=== PATIENT | female | born 1975 | race African-American/Black ===

== ENCOUNTER 2017-07-27 09:37 | Emergency (ER) | payer BC ==
[2017-07-27 09:59] VITALS: BP 114/72
--- NOTE | 2017-07-27 10:38 | UC ---
Respiratory Complaint HPI - HPI Summary HPI Summary: 42 y/o female presents to the urgent care c/o SOB, congestion, sore throat that started last Tuesday07/22/17. Pt states symptoms started w/ body aches, chills, nasal congestion, and low grade fever. Now cough is productive w/ yellowish phlegm and she felt SOB and WILD this morning . Pt denies wheezing, chest pain, dizziness, abdominal pain, N/V/D. She has taken OTC meds w/o any improvement of symptoms. LMP:07/04/2017 and declines test. - History of Current Complaint Chief Complaint: UCGeneralIllness Stated Complaint: CHEST CONGESTION Time Seen by Provider: 07/27/17 10:37 Hx Obtained From: Patient Hx Last Menstrual Period: 07/04/17 ?: No Onset/Duration: Gradual Onset, Lasting Weeks - 1 week, Still Present, Worse Since - today Timing: Intermittent Episodes Severity Initially: Mild Severity Currently: Moderate Pain Intensity: 6 - WILD Pain Scale Used: 0-10 Numeric Character: Cough: Productive, Sputum Description: - yellowish Aggravating Factors: Recumbent Position Alleviating Factors: OTC Meds Associated Signs And Symptoms: Positive: Dyspnea, Fever - low grade at home, Chills, Calf Swelling, URI, Nasal Congestion. Negative: Wheezing - Risk Factors Pulmonary Embolism Risk Factors: Negative Cardiac Risk Factors: Negative Pseudomonas Risk Factors: Negative Tuberculosis Risk Factors: Negative - Allergies/Home Medications Allergies/Adverse Reactions: Allergies Allergy/AdvReac Type Severity Reaction Status Date / Time Penicillins Allergy Unknown Verified 07/27/17 09:52 Reaction Details ibuprofen AdvReac Abdominal Verified 07/27/17 09:52 Pain Home Medications: Home Medications Citalopram TAB* [Celexa TAB*] 40 mg PO DAILY 07/27/17 [History Confirmed ] traZODone TAB* [Desyrel TAB*] 50 mg PO BEDTIME 07/27/17 [History Confirmed 07/27] PMH/Surg Hx/FS Hx/Imm Hx Previously Healthy: Yes - Pt denies PMHX - Surgical History Surgical History: Yes Surgery Procedure, Year, and Place: tubal ligation - Family History Known Family History: Positive: Hypertension - Social History Occupation: Employed Full-time Lives: With Family Alcohol Use: None Substance Use Type: None Smoking Status (MU): Never Smoked Tobacco Review of Systems Constitutional: Fever - low grade at home, Chills, Other - body aches Skin: Negative Eyes: Negative ENT: Nasal Discharge, Sinus Congestion Respiratory: Shortness Of Breath, Cough Cardiovascular: Negative Gastrointestinal: Negative Genitourinary: Negative Motor: Negative Neurovascular: Negative Musculoskeletal: Negative Neurological: Headache Psychological: Negative Is Patient Immunocompromised?: No All Other Systems Reviewed And Are Negative: Yes Physical Exam - Summary Physical Exam Summary: Vital Signs Reviewed: Yes General: well developed, well nourished female sitting in the examining table w/ o any apparent distress Eyes: Positive: Conjunctiva Clear - PERRLA, EOMI, fundi grossly normal ENT: Positive: Normal ENT inspection, Hearing grossly normal, Pharynx normal, Nasal congestion - edematous and erythematous nasal mucosa, Nasal drainage - yellowish drainage, TMs normal. Negative: Tonsillar swelling, Tonsillar exudate Neck: Positive: Supple, Nontender, No Lymphadenopathy Respiratory: no orthopnea or dyspnea. Able to speak in full sentences, no retractions or accessory muscle use, no tripod position, stridor, or head bobbing. Positive breath sounds. B/L posterior upper lungs w/ scattered rhonchi , no wheezes, no crackles or rales. Cardiovascular: Positive: RRR, No Murmur, Pulses Normal, Brisk Capillary Refill Abdomen Description: Positive: Nontender, No Organomegaly, Soft. Negative: CVA Tenderness (R), CVA Tenderness (L) Bowel Sounds: Positive: Present Musculoskeletal Exam: Normal Musculoskeletal: Positive: Strength Intact, ROM Intact, No Edema Neurological Exam: Normal Psychological Exam: Normal Skin Exam: Normal Triage Information Reviewed: Yes Vital Signs: Initial Vital Signs Temp 98.3 F 07/27/17 09:53 Pulse 89 07/27/17 09:53 Resp 16 07/27/17 09:53 BP 114/72 07/27/17 09:53 Pulse Ox 100 07/27/17 09:53 UC Diagnostic Evaluation - Laboratory O2 Sat by Pulse Oximetry: 100 Respiratory Course/Dx - Course Course Of Treatment: 42 y/o female presents to the urgent care c/o SOB, congestion, sore throat that started last Tuesday07/22/17. Pt states symptoms started w/ body aches, chills, nasal congestion, and low grade fever. Now cough is productive w/ yellowish phlegm and she felt SOB and WILD this morning . Pt denies wheezing, chest pain, dizziness, abdominal pain, N/V/D. She has taken OTC meds w/o any improvement of symptoms. LMP:07/04/2017 and declines test.Hx obtained. Pt w/ posterior upper lungs w/ scattered rhonchi on examination. Influenxa A&B: negative. O2Sat:100%.Chest X-ray ordered: Impression : No acute cardiopulmonary disease observed. Albuterol Treatment: 1 Tx given to patient. Patient tolerated well treatment and felt better. PT PCN allegic. Pt taking Xanax for her depression. Patient prescribed Doxycycline PO , Albuterol inhaler and Tessalon tabs to alleviate cough. The patient was recommended to increase fluid intake. Take medications as directed below. Patient recommended to return to the clinic or go to the nearest ER if symptoms do not improve or worsen. Patient understood and agree w/ plan of care. Pt left the clinicn hemodynamically stable. - Differential Dx/Diagnosis Differential Diagnosis/HQI/PQRI: Asthma, Bronchitis, Influenza, Laryngitis, Lower Resp Infection, Sinusitis Provider Diagnoses: 1- Acute bronchitis. 2-Cough Discharge - Sign-Out/Discharge Documenting (check all that apply): Discharge - Discharge Plan Condition: Stable Disposition: HOME Prescriptions: Albuterol HFA INHALER* [Ventolin HFA Inhaler*] 1 - 2 puff INH Q6H PRN #1 mdi PRN Reason: Cough Benzonatate CAP* [Tessalon 100 MG CAP*] 100 mg PO TID PRN #21 cap PRN Reason: Cough DOXYcycline CAP(*) [DOXYcycline 100MG CAP(*)] 100 mg PO DAILY #20 cap Patient Education Materials: Acute Bronchitis (ED) Forms: *Work Release Referrals: Jesse Kyle MD [Primary Care Provider] - 3 Days Additional Instructions: 1-Please take full course of antibiotic to avoid resistance. 2-Take Tessalon PO tabs as directed and use the albuterol inhaler to alleviate cough. Increase fluid intake, rest and eat well. 3- If symptoms do not improve or worsen or your develop SOB with fever and severe wheezing please go immediately to the ER further evaluation and treatment. 4- F/u with your PCP in 2-3 days for further management. - Billing Disposition and Condition Condition: STABLE Disposition: HOME
[2017-07-27] MEDS ORDERED: Albuterol 2.5 MG/3 ML NEB.SOL* (0.083%) INH ONE (10:50)
--- NOTE | 2017-07-27 11:27 | RAD ---
Indication: Cough, fever. 2 views of the chest including dual energy PA views demonstrates no mediastinal shift. Heart is of normal size and configuration. Lung guerra are clear. When compared to previous exam of April 30, 2015 no significant change is noted. IMPRESSION: No active cardiopulmonary disease is noted.
== END 2017-07-27 11:52 | disposition home or self-care (01) ==
LOC: UCEAST 09:37
DX: R06.02 Shortness of breath (principal); R09.89 Other specified symptoms and signs involving the circulatory and respiratory systems; J02.9 Acute pharyngitis, unspecified; R05 Cough; R50.9 Fever, unspecified; Z88.6 Allergy status to analgesic agent; Z88.0 Allergy status to penicillin
CPT/HCPCS: 71046; 87502; 99212; G0463

== ENCOUNTER 2018-05-30 13:42 | Emergency (ER) | payer BC ==
[2018-05-30 14:02] VITALS: BP 112/73
--- NOTE | 2018-05-30 14:36 | UC ---
Complaint Female HPI - HPI Summary HPI Summary: Low back pain and dysuria over the past 2 days. Had a low grade fever yesterday. Pt states she thinks she has a prolapsed uterus which she has had for the past 2 years. Pt states she saw an AREA COORDINATOR 2 years ago and they were not able to determine a prolapsed uterus. Pt complains of a more severe menses 2 weeks ago with a lot of cramping which is abnormal for her. She has some abnormal vaginal discharge but denies any smell or color to it. She has had a tubal ligation in the past. - History Of Current Complaint Chief Complaint: UCGU Stated Complaint: ABD/BACK PAIN URINARY ISSUE Time Seen by Provider: 05/30/18 14:28 Hx Obtained From: Patient Hx Last Menstrual Period: 2 weeks ago ?: No Onset/Duration: Gradual Onset - Started 2 days ago. Timing: Constant Severity Initially: Mild Severity Currently: Mild Pain Intensity: 7 Character: Dull, Burning - The feeling of the uterine prolapse is worse when patient is urinating. Aggravating Factor(s): Urination Alleviating Factor(s): Nothing Associated Signs And Symptoms: Positive: Fever - Low grade fever yesterday, Vaginal Bleeding/Discharge - Mild abnormal vaginal discharge with no odor or abnormal color to it. Related Hx: - 4 para 4 - Risk Factors Ectopic Risk Factor: Tubal Ligation Ovarian Torsion Risk Factor: Tubal Ligation - Allergies/Home Medications Allergies/Adverse Reactions: Allergies Allergy/AdvReac Type Severity Reaction Status Date / Time Penicillins Allergy Unknown Verified 05/30/18 14:02 Reaction Details ibuprofen AdvReac Abdominal Verified 05/30/18 14:02 Pain PMH/Surg Hx/FS Hx/Imm Hx - Additional Past Medical History Additional PMH: Sexually active with one partner in monogamous relationship. Previously Healthy: Yes - Surgical History Surgical History: Yes Surgery Procedure, Year, and Place: tubal ligation - Family History Known Family History: Positive: Hypertension - Social History Lives: With Family Alcohol Use: None Substance Use Type: None Smoking Status (MU): Never Smoked Tobacco Review of Systems All Other Systems Reviewed And Are Negative: Yes Constitutional: Positive: Fever - Low grade fever yesterday but resolved today. Skin: Positive: Negative Eyes: Positive: Negative ENT: Positive: Negative Respiratory: Positive: Negative Cardiovascular: Positive: Negative Gastrointestinal: Positive: Abdominal Pain - Lower abdominal Genitourinary: Positive: Dysuria Motor: Positive: Negative Neurovascular: Positive: Negative Musculoskeletal: Positive: Negative Neurological: Positive: Negative Is Patient Immunocompromised?: No Physical Exam Appearance: Well-Appearing Vital Signs: Initial Vital Signs Temp 97.6 F 05/30/18 13:55 Pulse 82 05/30/18 13:55 Resp 18 05/30/18 13:55 BP 112/73 05/30/18 13:55 Pulse Ox 100 05/30/18 13:55 Vital Signs Reviewed: Yes Eyes: Positive: Conjunctiva Clear ENT Exam: Normal Neck exam: Normal Respiratory Exam: Normal Cardiovascular Exam: Normal Abdomen Description: Positive: No Organomegaly, Soft, Other: - Mild tenderness on palpation upper abdomen and lower abdomen. No point tenderness. Bowel Sounds: Positive: Present Pelvic Exam: Positive: External Exam Normal - No uterine prolapse noted., No Masses, Discharge - Minimal white milky discharge with a slight tinge of yellow to it. Adnexa and cervix minimally tender on firm palpation. Negative chandelier. No uterine prolapse noted. Musculoskeletal Exam: Normal Neurological: Positive: Alert, Muscle Tone Normal Psychological: Positive: Normal Response To Family, Age Appropriate Behavior Skin Exam: Normal Complaint Female Dx - Course Course Of Treatment: Discussed possibility of BV, STD's, yeast infection with patient. She would rather wait for culture results before doing any treatment ( which I offered to her). I was unable to determine a uterine prolapse and advised her to keep her appt in June with her AREA COORDINATOR physician. She is to go to the ER if she has worsening symptoms, fever, increased pain. She is agreeable to this plan of action. - Differential Dx/Diagnosis Provider Diagnosis: Abdominal pain Discharge - Sign-Out/Discharge Documenting (check all that apply): Patient Departure All imaging exams completed and their final reports reviewed: No Studies - Discharge Plan Condition: Good Disposition: HOME Patient Education Materials: Acute Abdominal Pain (DC) Referrals: Jesse Kyle MD [Primary Care Provider] - Additional Instructions: If pain worsens, go to the ER for further evaluation. Definite follow up, as scheduled, with your AREA COORDINATOR physician. - Billing Disposition and Condition Condition: GOOD Disposition: Home
[2018-05-31 13:07] LABS: Neisseria gonorrhoeae (GC) RNA Negative (Negative)
[2018-05-31 13:12] LABS: Trichomonas vaginalis Result Negative (Negative)
== END 2018-05-30 15:35 | disposition home or self-care (01) ==
LOC: UCEAST 13:42
DX: R10.10 Upper abdominal pain, unspecified (principal); R10.30 Lower abdominal pain, unspecified; R50.9 Fever, unspecified; N89.8 Other specified noninflammatory disorders of vagina; Z88.6 Allergy status to analgesic agent; Z88.0 Allergy status to penicillin
CPT/HCPCS: 81003; 84702; 87480; 87491; 87510; 87591; 87661; 99211; G0463

== ENCOUNTER 2019-02-21 14:50 | Emergency (ER) | payer BC, OTHER ==
--- OUTSIDE RECORDS SUMMARY | 2019-02-21 15:06 | XMS REPORT | Continuity of Care Document ---
:1975 External Reference #:[id number] Author Name Hilario Noel M.D. Address [address] [facility] [place] [address] Care Team Providers Name Role Phone Jesse Kyle M.D. Care Team Information Head [employer] Unavailable Problems Active Problems Provider Date Allergic rhinitis due to pollen Hilario Noel M.D. Onset: 06/12/2018 Social History Type Date Description Comments Sex Unknown ETOH Use Rarely consumes alcohol Tobacco Use Start: Unknown Patient has never smoked Recreational Drug Use Denies Drug Use Allergies, Adverse Reactions, Alerts Active Allergies Reaction Severity Comments Date Penicillin unsure 06/12/2018 Medications Active Medications SIG Qnty Indications Ordering Provider Date Qnasl two squirts in 8.700gm J30.1 Hilario Noel M.D. 06/12/2018 80mcg/Act Aerosol each nostril once daily Citalopram Unknown Hydrobromide 40mg Tablets Medications Administered in Office Medication SIG Qnty Indications Ordering Provider Date Injection Allergy Injection 01/01/2019 Injection Injection Allergy Injection 12/25/2018 Injection Injection Allergy Injection 12/18/2018 Injection Injection Allergy Injection 12/13/2018 Injection Injection Allergy Injection 12/04/2018 Injection Injection Allergy Injection 11/29/2018 Injection Injection Allergy Injection 11/20/2018 Injection Injection Allergy Injection 11/13/2018 Injection Injection Allergy Injection 11/06/2018 Injection Injection Allergy Injection 10/30/2018 Injection Injection Allergy Injection 10/25/2018 Injection Injection Allergy Injection 10/16/2018 Injection Injection Allergy Injection 10/09/2018 Injection Injection Allergy Injection 10/02/2018 Injection Injection Allergy Injection 09/27/2018 Injection Injection Allergy Injection 09/18/2018 Injection Injection Allergy Injection 09/11/2018 Injection Injection Allergy Injection 09/06/2018 Injection Injection Allergy Injection 08/28/2018 Injection Injection Allergy Injection 08/21/2018 Injection Injection Allergy Injection 08/14/2018 Injection Injection Allergy Injection 08/07/2018 Injection Injection Allergy Injection 07/31/2018 Injection Injection Allergy Injection 07/17/2018 Injection Injection Allergy Injection 07/10/2018 Injection Injection Allergy Injection 07/03/2018 Injection Injection Allergy Injection 06/26/2018 Injection Immunizations CPT Code Status Date Vaccine Lot # [id number] Given Unknown Influenza Vaccine 26144 Given Unknown Influenza Vaccine Vital Signs Date Vital Result Comment 01/05/2019 3:15pm Height 64 inches 5'4" Weight 195.00 lb Weight 88.452 kg Respiratory Rate 16 /min Heart Rate 84 /min O2 % BldC Oximetry 99 % BP Systolic 104 mmHg BP Diastolic 65 mmHg BMI (Body Mass Index) 33.5 kg/m2 12/18/2018 5:06pm Height 64 inches 5'4" Respiratory Rate 16 /min Heart Rate 85 /min O2 % BldC Oximetry 99 % room air BP Systolic 102 mmHg BP Diastolic 68 mmHg Results Description No Information Available Procedures Date Code Description Status 01/01/2019 11585 Injection Completed 12/25/2018 93062 Injection Completed 12/18/2018 26266 Extract 1-10 Completed 12/18/2018 41812 Injection Completed 12/13/2018 13201 Injection Completed 12/04/2018 00176 Injection Completed 11/29/2018 28181 Injection Completed 11/20/2018 46422 Injection Completed 11/13/2018 02420 Injection Completed 11/06/2018 39893 Injection Completed 10/30/2018 10592 Injection Completed 10/25/2018 87914 Injection Completed 10/16/2018 89739 Injection Completed 10/09/2018 39351 Injection Completed 10/02/2018 73207 Injection Completed 09/27/2018 81008 Injection Completed 09/18/2018 65612 Injection Completed 09/11/2018 47308 Extract 1-10 Completed 09/11/2018 02019 Injection Completed 09/06/2018 64779 Injection Completed 08/28/2018 89282 Injection Completed 08/21/2018 65499 Injection Completed 08/14/2018 12854 Injection Completed 08/07/2018 20316 Injection Completed 07/31/2018 34775 Injection Completed 07/17/2018 99265 Injection Completed 07/10/2018 18792 Injection Completed Medical Devices Description No Information Available Encounters Type Date Location Provider Dx Diagnosis Office Visit 01/05/2019 3:20p Mauricio Noel M.D. J30.1 Allergic rhinitis due to pollen Assessments Date Code Description Provider 01/05/2019 J30.1 Allergic rhinitis due to pollen Hilario Noel M.D. 01/05/2019 J30.1 Allergic rhinitis due to pollen Mindi Claudio M.D. 01/01/2019 J30.1 Allergic rhinitis due to pollen Hilario Noel M.D. 01/01/2019 J30.1 Allergic rhinitis due to pollen Allergy Injection 01/01/2019 J30.89 Other allergic rhinitis Hilario Noel M.D. 01/01/2019 J30.89 Other allergic rhinitis Allergy Injection 01/01/2019 J30.2 Other seasonal allergic rhinitis Hilario Noel M.D. 01/01/2019 J30.2 Other seasonal allergic rhinitis Allergy Injection 01/01/2019 J30.81 Allergic rhinitis due to animal (cat) (dog) Hilario Noel M.D. hair and dander 01/01/2019 J30.81 Allergic rhinitis due to animal (cat) (dog) Allergy Injection hair and dander 12/25/2018 J30.1 Allergic rhinitis due to pollen Hilario Noel M.D. 12/25/2018 J30.1 Allergic rhinitis due to pollen Allergy Injection 12/25/2018 J30.89 Other allergic rhinitis Hilario Noel M.D. 12/25/2018 J30.89 Other allergic rhinitis Allergy Injection 12/25/2018 J30.2 Other seasonal allergic rhinitis Hilario Noel M.D. 12/25/2018 J30.2 Other seasonal allergic rhinitis Allergy Injection 12/25/2018 J30.81 Allergic rhinitis due to animal (cat) (dog) Hilario Noel M.D. hair and dander 12/25/2018 J30.81 Allergic rhinitis due to animal (cat) (dog) Allergy Injection hair and dander 12/18/2018 J30.1 Allergic rhinitis due to pollen Hilario Noel M.D. 12/18/2018 J30.1 Allergic rhinitis due to pollen Hilario Noel M.D. 12/18/2018 J30.89 Other allergic rhinitis Hilario Noel M.D. 12/18/2018 J30.1 Allergic rhinitis due to pollen Allergy Injection 12/18/2018 J30.2 Other seasonal allergic rhinitis Hilario Noel M.D. 12/18/2018 J30.89 Other allergic rhinitis Hilario Noel M.D. 12/18/2018 J30.81 Allergic rhinitis due to animal (cat) (dog) Hilario Noel M.D. hair and dander 12/18/2018 J30.89 Other allergic rhinitis Allergy Injection 12/18/2018 J30.2 Other seasonal allergic rhinitis Hilario Noel M.D. 12/18/2018 J30.2 Other seasonal allergic rhinitis Allergy Injection 12/18/2018 J30.81 Allergic rhinitis due to animal (cat) (dog) Hilario Noel M.D. hair and dander 12/18/2018 J30.81 Allergic rhinitis due to animal (cat) (dog) Allergy Injection hair and dander 12/13/2018 J30.1 Allergic rhinitis due to pollen Hilario Noel M.D. 12/13/2018 J30.1 Allergic rhinitis due to pollen Allergy Injection 12/13/2018 J30.89 Other allergic rhinitis Hilario Noel M.D. 12/13/2018 J30.89 Other allergic rhinitis Allergy Injection 12/13/2018 J30.2 Other seasonal allergic rhinitis Hilario Noel M.D. 12/13/2018 J30.2 Other seasonal allergic rhinitis Allergy Injection 12/13/2018 J30.81 Allergic rhinitis due to animal (cat) (dog) Hilario Noel M.D. hair and dander 12/13/2018 J30.81 Allergic rhinitis due to animal (cat) (dog) Allergy Injection hair and dander 12/04/2018 J30.1 Allergic rhinitis due to pollen Hilario Noel M.D. 12/04/2018 J30.1 Allergic rhinitis due to pollen Allergy Injection 12/04/2018 J30.89 Other allergic rhinitis Hilario Noel M.D. 12/04/2018 J30.89 Other allergic rhinitis Allergy Injection 12/04/2018 J30.2 Other seasonal allergic rhinitis Hilario Noel M.D. 12/04/2018 J30.2 Other seasonal allergic rhinitis Allergy Injection 12/04/2018 J30.81 Allergic rhinitis due to animal (cat) (dog) Hilario Noel M.D. hair and dander 12/04/2018 J30.81 Allergic rhinitis due to animal (cat) (dog) Allergy Injection hair and dander 11/29/2018 J30.1 Allergic rhinitis due to pollen Hilario Noel M.D. 11/29/2018 J30.1 Allergic rhinitis due to pollen Allergy Injection 11/29/2018 J30.89 Other allergic rhinitis Hilario Noel M.D. 11/29/2018 J30.89 Other allergic rhinitis Allergy Injection 11/29/2018 J30.2 Other seasonal allergic rhinitis Hilario Noel M.D. 11/29/2018 J30.2 Other seasonal allergic rhinitis Allergy Injection 11/29/2018 J30.81 Allergic rhinitis due to animal (cat) (dog) Hilario Noel M.D. hair and dander 11/29/2018 J30.81 Allergic rhinitis due to animal (cat) (dog) Allergy Injection hair and dander 11/20/2018 J30.1 Allergic rhinitis due to pollen Hilario Noel M.D. 11/20/2018 J30.1 Allergic rhinitis due to pollen Allergy Injection 11/20/2018 J30.89 Other allergic rhinitis Hilario Noel M.D. 11/20/2018 J30.89 Other allergic rhinitis Allergy Injection 11/20/2018 J30.2 Other seasonal allergic rhinitis Hilario Noel M.D. 11/20/2018 J30.2 Other seasonal allergic rhinitis Allergy Injection 11/20/2018 J30.81 Allergic rhinitis due to animal (cat) (dog) Hilario Noel M.D. hair and dander 11/20/2018 J30.81 Allergic rhinitis due to animal (cat) (dog) Allergy Injection hair and dander 11/13/2018 J30.1 Allergic rhinitis due to pollen Hilario Noel M.D. 11/13/2018 J30.1 Allergic rhinitis due to pollen Allergy Injection 11/13/2018 J30.89 Other allergic rhinitis Hilario Noel M.D. 11/13/2018 J30.89 Other allergic rhinitis Allergy Injection 11/13/2018 J30.2 Other seasonal allergic rhinitis Hilario Noel M.D. 11/13/2018 J30.2 Other seasonal allergic rhinitis Allergy Injection 11/13/2018 J30.81 Allergic rhinitis due to animal (cat) (dog) Hilario Noel M.D. hair and dander 11/13/2018 J30.81 Allergic rhinitis due to animal (cat) (dog) Allergy Injection hair and dander 11/06/2018 J30.1 Allergic rhinitis due to pollen Hilario Noel M.D. 11/06/2018 J30.1 Allergic rhinitis due to pollen Allergy Injection 11/06/2018 J30.89 Other allergic rhinitis Hilario Noel M.D. 11/06/2018 J30.89 Other allergic rhinitis Allergy Injection 11/06/2018 J30.2 Other seasonal allergic rhinitis Hilario Noel M.D. 11/06/2018 J30.2 Other seasonal allergic rhinitis Allergy Injection 11/06/2018 J30.81 Allergic rhinitis due to animal (cat) (dog) Hilario Noel M.D. hair and dander 11/06/2018 J30.81 Allergic rhinitis due to animal (cat) (dog) Allergy Injection hair and dander 10/30/2018 J30.1 Allergic rhinitis due to pollen Hilario Noel M.D. 10/30/2018 J30.1 Allergic rhinitis due to pollen Allergy Injection 10/30/2018 J30.89 Other allergic rhinitis Hilario Noel M.D. 10/30/2018 J30.89 Other allergic rhinitis Allergy Injection 10/30/2018 J30.2 Other seasonal allergic rhinitis Hilario Noel M.D. 10/30/2018 J30.2 Other seasonal allergic rhinitis Allergy Injection 10/30/2018 J30.81 Allergic rhinitis due to animal (cat) (dog) Hilario Noel M.D. hair and dander 10/30/2018 J30.81 Allergic rhinitis due to animal (cat) (dog) Allergy Injection hair and dander 10/25/2018 J30.2 Other seasonal allergic rhinitis Hilario Noel M.D. 10/25/2018 J30.2 Other seasonal allergic rhinitis Allergy Injection 10/25/2018 J30.81 Allergic rhinitis due to animal (cat) (dog) Hilario Noel M.D. hair and dander 10/25/2018 J30.81 Allergic rhinitis due to animal (cat) (dog) Allergy Injection hair and dander 10/25/2018 J30.1 Allergic rhinitis due to pollen Hilario Noel M.D. 10/25/2018 J30.1 Allergic rhinitis due to pollen Allergy Injection 10/25/2018 J30.89 Other allergic rhinitis Hilario Noel M.D. 10/25/2018 J30.89 Other allergic rhinitis Allergy Injection 10/16/2018 J30.1 Allergic rhinitis due to pollen Hilario Noel M.D. 10/16/2018 J30.1 Allergic rhinitis due to pollen Allergy Injection 10/16/2018 J30.89 Other allergic rhinitis Hilario Noel M.D. 10/16/2018 J30.89 Other allergic rhinitis Allergy Injection 10/16/2018 J30.2 Other seasonal allergic rhinitis Hliario Noel M.D. 10/16/2018 J30.2 Other seasonal allergic rhinitis Allergy Injection 10/16/2018 J30.81 Allergic rhinitis due to animal (cat) (dog) Hilario Noel M.D. hair and dander 10/16/2018 J30.81 Allergic rhinitis due to animal (cat) (dog) Allergy Injection hair and dander 10/09/2018 J30.1 Allergic rhinitis due to pollen Hilario Noel M.D. 10/09/2018 J30.1 Allergic rhinitis due to pollen Allergy Injection 10/09/2018 J30.89 Other allergic rhinitis Hilario Noel M.D. 10/09/2018 J30.89 Other allergic rhinitis Allergy Injection 10/09/2018 J30.2 Other seasonal allergic rhinitis Hilario Noel M.D. 10/09/2018 J30.2 Other seasonal allergic rhinitis Allergy Injection 10/09/2018 J30.81 Allergic rhinitis due to animal (cat) (dog) Hilario Noel M.D. hair and dander 10/09/2018 J30.81 Allergic rhinitis due to animal (cat) (dog) Allergy Injection hair and dander 10/02/2018 J30.1 Allergic rhinitis due to pollen Hilario Noel M.D. 10/02/2018 J30.1 Allergic rhinitis due to pollen Allergy Injection 10/02/2018 J30.89 Other allergic rhinitis Hilario Noel M.D. 10/02/2018 J30.89 Other allergic rhinitis Allergy Injection 10/02/2018 J30.2 Other seasonal allergic rhinitis Hilario Noel M.D. 10/02/2018 J30.2 Other seasonal allergic rhinitis Allergy Injection 10/02/2018 J30.81 Allergic rhinitis due to animal (cat) (dog) Hilario Noel M.D. hair and dander 10/02/2018 J30.81 Allergic rhinitis due to animal (cat) (dog) Allergy Injection hair and dander 09/27/2018 J30.1 Allergic rhinitis due to pollen Hilario Noel M.D. 09/27/2018 J30.1 Allergic rhinitis due to pollen Allergy Injection 09/27/2018 J30.89 Other allergic rhinitis Hilario Noel M.D. 09/27/2018 J30.89 Other allergic rhinitis Allergy Injection 09/27/2018 J30.2 Other seasonal allergic rhinitis Hilario Noel M.D. 09/27/2018 J30.2 Other seasonal allergic rhinitis Allergy Injection 09/27/2018 J30.81 Allergic rhinitis due to animal (cat) (dog) Hilario Noel M.D. hair and dander 09/27/2018 J30.81 Allergic rhinitis due to animal (cat) (dog) Allergy Injection hair and dander 09/18/2018 J30.1 Allergic rhinitis due to pollen Hilario Noel M.D. 09/18/2018 J30.1 Allergic rhinitis due to pollen Allergy Injection 09/18/2018 J30.89 Other allergic rhinitis Hilario Noel M.D. 09/18/2018 J30.89 Other allergic rhinitis Allergy Injection 09/18/2018 J30.2 Other seasonal allergic rhinitis Hilario Noel M.D. 09/18/2018 J30.2 Other seasonal allergic rhinitis Allergy Injection 09/18/2018 J30.81 Allergic rhinitis due to animal (cat) (dog) Hilario Noel M.D. hair and dander 09/18/2018 J30.81 Allergic rhinitis due to animal (cat) (dog) Allergy Injection hair and dander 09/11/2018 J30.1 Allergic rhinitis due to pollen Hilario Noel M.D. 09/11/2018 J30.1 Allergic rhinitis due to pollen Hilario Noel M.D. 09/11/2018 J30.89 Other allergic rhinitis Hilario Noel M.D. 09/11/2018 J30.1 Allergic rhinitis due to pollen Allergy Injection 09/11/2018 J30.2 Other seasonal allergic rhinitis Hilario Noel M.D. 09/11/2018 J30.89 Other allergic rhinitis Hilario Noel M.D. 09/11/2018 J30.81 Allergic rhinitis due to animal (cat) (dog) Hilario Noel M.D. hair and dander 09/11/2018 J30.89 Other allergic rhinitis Allergy Injection 09/11/2018 J30.2 Other seasonal allergic rhinitis Hilario Noel M.D. 09/11/2018 J30.2 Other seasonal allergic rhinitis Allergy Injection 09/11/2018 J30.81 Allergic rhinitis due to animal (cat) (dog) Hilario Noel M.D. hair and dander 09/11/2018 J30.81 Allergic rhinitis due to animal (cat) (dog) Allergy Injection hair and dander 09/06/2018 J30.1 Allergic rhinitis due to pollen Hilario Noel M.D. 09/06/2018 J30.1 Allergic rhinitis due to pollen Allergy Injection 09/06/2018 J30.89 Other allergic rhinitis Hilario Noel M.D. 09/06/2018 J30.89 Other allergic rhinitis Allergy Injection 09/06/2018 J30.2 Other seasonal allergic rhinitis Hilario Noel M.D. 09/06/2018 J30.2 Other seasonal allergic rhinitis Allergy Injection 09/06/2018 J30.81 Allergic rhinitis due to animal (cat) (dog) Hilario Noel M.D. hair and dander 09/06/2018 J30.81 Allergic rhinitis due to animal (cat) (dog) Allergy Injection hair and dander 08/28/2018 J30.1 Allergic rhinitis due to pollen Hilario Noel M.D. 08/28/2018 J30.1 Allergic rhinitis due to pollen Allergy Injection 08/28/2018 J30.89 Other allergic rhinitis Hilario Noel M.D. 08/28/2018 J30.89 Other allergic rhinitis Allergy Injection 08/28/2018 J30.2 Other seasonal allergic rhinitis Hilario Noel M.D. 08/28/2018 J30.2 Other seasonal allergic rhinitis Allergy Injection 08/28/2018 J30.81 Allergic rhinitis due to animal (cat) (dog) Hilario Noel M.D. hair and dander 08/28/2018 J30.81 Allergic rhinitis due to animal (cat) (dog) Allergy Injection hair and dander 08/21/2018 J30.1 Allergic rhinitis due to pollen Hilario Noel M.D. 08/21/2018 J30.1 Allergic rhinitis due to pollen Allergy Injection 08/21/2018 J30.89 Other allergic rhinitis Hilario Noel M.D. 08/21/2018 J30.89 Other allergic rhinitis Allergy Injection 08/21/2018 J30.2 Other seasonal allergic rhinitis Hilario Noel M.D. 08/21/2018 J30.2 Other seasonal allergic rhinitis Allergy Injection 08/21/2018 J30.81 Allergic rhinitis due to animal (cat) (dog) Hilario Noel M.D. hair and dander 08/21/2018 J30.81 Allergic rhinitis due to animal (cat) (dog) Allergy Injection hair and dander 08/14/2018 J30.1 Allergic rhinitis due to pollen Hilario Noel M.D. 08/14/2018 J30.1 Allergic rhinitis due to pollen Allergy Injection 08/14/2018 J30.89 Other allergic rhinitis Hilario Noel M.D. 08/14/2018 J30.89 Other allergic rhinitis Allergy Injection 08/14/2018 J30.2 Other seasonal allergic rhinitis Hilario Noel M.D. 08/14/2018 J30.2 Other seasonal allergic rhinitis Allergy Injection 08/14/2018 J30.81 Allergic rhinitis due to animal (cat) (dog) Hilario Noel M.D. hair and dander 08/14/2018 J30.81 Allergic rhinitis due to animal (cat) (dog) Allergy Injection hair and dander 08/07/2018 J30.1 Allergic rhinitis due to pollen Hilario Noel M.D. 08/07/2018 J30.1 Allergic rhinitis due to pollen Allergy Injection 08/07/2018 J30.89 Other allergic rhinitis Hilario Noel M.D. 08/07/2018 J30.89 Other allergic rhinitis Allergy Injection 08/07/2018 J30.2 Other seasonal allergic rhinitis Hilario Noel M.D. 08/07/2018 J30.2 Other seasonal allergic rhinitis Allergy Injection 08/07/2018 J30.81 Allergic rhinitis due to animal (cat) (dog) Hilario Noel M.D. hair and dander 08/07/2018 J30.81 Allergic rhinitis due to animal (cat) (dog) Allergy Injection hair and dander 07/31/2018 J30.1 Allergic rhinitis due to pollen Hilario Noel M.D. 07/31/2018 J30.1 Allergic rhinitis due to pollen Allergy Injection 07/31/2018 J30.89 Other allergic rhinitis Hilario Noel M.D. 07/31/2018 J30.89 Other allergic rhinitis Allergy Injection 07/31/2018 J30.2 Other seasonal allergic rhinitis Hilario Noel M.D. 07/31/2018 J30.2 Other seasonal allergic rhinitis Allergy Injection 07/31/2018 J30.81 Allergic rhinitis due to animal (cat) (dog) Hilario Noel M.D. hair and dander 07/31/2018 J30.81 Allergic rhinitis due to animal (cat) (dog) Allergy Injection hair and dander 07/17/2018 J30.1 Allergic rhinitis due to pollen Hilario Noel M.D. 07/17/2018 J30.1 Allergic rhinitis due to pollen Allergy Injection 07/17/2018 J30.89 Other allergic rhinitis Hilario Noel M.D. 07/17/2018 J30.89 Other allergic rhinitis Allergy Injection 07/17/2018 J30.2 Other seasonal allergic rhinitis Hilario Noel M.D. 07/17/2018 J30.2 Other seasonal allergic rhinitis Allergy Injection 07/17/2018 J30.81 Allergic rhinitis due to animal (cat) (dog) Hilario Noel M.D. hair and dander 07/17/2018 J30.81 Allergic rhinitis due to animal (cat) (dog) Allergy Injection hair and dander 07/10/2018 J30.1 Allergic rhinitis due to pollen Hilario Noel M.D. 07/10/2018 J30.1 Allergic rhinitis due to pollen Allergy Injection 07/10/2018 J30.89 Other allergic rhinitis Hilario Noel M.D. 07/10/2018 J30.89 Other allergic rhinitis Allergy Injection 07/10/2018 J30.2 Other seasonal allergic rhinitis Hilario Noel M.D. 07/10/2018 J30.2 Other seasonal allergic rhinitis Allergy Injection 07/10/2018 J30.81 Allergic rhinitis due to animal (cat) (dog) Hilario Noel M.D. hair and dander 07/10/2018 J30.81 Allergic rhinitis due to animal (cat) (dog) Allergy Injection hair and dander Plan of Treatment Future Appointment(s):07/06/2019 3:00 pm - [facility] at [place] Functional Status Description No Information Available Mental Status Description No Information Available Referrals Description No Information Available
--- OUTSIDE RECORDS SUMMARY | 2019-02-21 15:06 | XMS REPORT | Continuity of Care Document ---
:1975 External Reference #:[id number] Author Name Hilario Noel M.D. Address [address] [facility] [place] [address] Care Team Providers Name Role Phone Jesse Kyle M.D. 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 Problems Active Problems Provider Date Allergic [...] CPT Code Status Date Vaccine Lot # 15454 Given Unknown Influenza Vaccine 05112 Given Unknown Influenza Vaccine Vital Signs Date [...] Available Procedures Date Code Description Status 01/01/2019 92087 Injection Completed 12/25/2018 04464 Injection Completed 12/18/2018 46938 Extract 1-10 Completed 12/18/2018 66102 Injection Completed 12/13/2018 21164 Injection Completed 12/04/2018 91491 Injection Completed 11/29/2018 13010 Injection Completed 11/20/2018 54613 Injection Completed 11/13/2018 00555 Injection Completed 11/06/2018 55520 Injection Completed 10/30/2018 36178 Injection Completed 10/25/2018 90806 Injection Completed 10/16/2018 69554 Injection Completed 10/09/2018 09876 Injection Completed 10/02/2018 02657 Injection Completed 09/27/2018 28977 Injection Completed 09/18/2018 64506 Injection Completed 09/11/2018 28391 Extract 1-10 Completed 09/11/2018 57726 Injection Completed 09/06/2018 83363 Injection Completed 08/28/2018 44010 Injection Completed 08/21/2018 98265 Injection Completed 08/14/2018 96636 Injection Completed 08/07/2018 84532 Injection Completed 07/31/2018 92303 Injection Completed 07/17/2018 22483 Injection Completed 07/10/2018 42987 Injection Completed Medical Devices Description No Information Available Encounters Description No Information Available Assessments Date Code Description Provider 01/01/2019 J30.1 Allergic rhinitis due to pollen Hilario Noel M.D. 01/01/2019 J30.1 Allergic rhinitis due to pollen Allergy Injection 01/01/2019 J30.89 Other allergic rhinitis Hilario Noel M.D. 01/01/2019 J30.89 Other allergic rhinitis Allergy Injection 01/01/2019 J30.2 Other seasonal allergic rhinitis Hilario Noel M.D. 01/01/2019 J30.2 Other seasonal allergic rhinitis Allergy Injection 01/01/2019 J30.81 Allergic rhinitis due to animal (cat) (dog) hair Hilario Noel M.D. and dander 01/01/2019 J30.81 Allergic rhinitis due to animal (cat) (dog) hair Allergy Injection and dander 12/25/2018 J30.1 Allergic rhinitis due to pollen Hilario Noel M.D. 12/25/2018 J30.1 Allergic rhinitis due to pollen Allergy Injection 12/25/2018 J30.89 Other allergic rhinitis Hilario Noel M.D. 12/25/2018 J30.89 Other allergic rhinitis Allergy Injection 12/25/2018 J30.2 Other seasonal allergic rhinitis Hilario Noel M.D. 12/25/2018 J30.2 Other seasonal allergic rhinitis Allergy Injection 12/25/2018 J30.81 Allergic rhinitis due to animal (cat) (dog) hair Hilario Noel M.D. and dander 12/25/2018 J30.81 Allergic rhinitis due to animal (cat) (dog) hair Allergy Injection and dander 12/18/2018 J30.1 Allergic rhinitis due [...] Allergic rhinitis due to animal (cat) (dog) hair Hilario Noel M.D. and dander 12/18/2018 J30.89 Other allergic rhinitis Allergy Injection 12/18/2018 J30.2 Other seasonal allergic rhinitis Hilario Noel M.D. 12/18/2018 J30.2 Other seasonal allergic rhinitis Allergy Injection 12/18/2018 J30.81 Allergic rhinitis due to animal (cat) (dog) hair Hilario Noel M.D. and dander 12/18/2018 J30.81 Allergic rhinitis due to animal (cat) (dog) hair Allergy Injection and dander 12/13/2018 J30.1 Allergic rhinitis due to pollen Hilario Noel M.D. 12/13/2018 J30.1 Allergic rhinitis due to pollen Allergy Injection 12/13/2018 J30.89 Other allergic rhinitis Hilario Noel M.D. 12/13/2018 J30.89 Other allergic rhinitis Allergy Injection 12/13/2018 J30.2 Other seasonal allergic rhinitis Hilario Noel M.D. 12/13/2018 J30.2 Other seasonal allergic rhinitis Allergy Injection 12/13/2018 J30.81 Allergic rhinitis due to animal (cat) (dog) hair Hilario Noel M.D. and dander 12/13/2018 J30.81 Allergic rhinitis due to animal (cat) (dog) hair Allergy Injection and dander 12/04/2018 J30.1 Allergic rhinitis due to pollen Hilario Noel M.D. 12/04/2018 J30.1 Allergic rhinitis due to pollen Allergy Injection 12/04/2018 J30.89 Other allergic rhinitis Hilario Noel M.D. 12/04/2018 J30.89 Other allergic rhinitis Allergy Injection 12/04/2018 J30.2 Other seasonal allergic rhinitis Hilario Noel M.D. 12/04/2018 J30.2 Other seasonal allergic rhinitis Allergy Injection 12/04/2018 J30.81 Allergic rhinitis due to animal (cat) (dog) hair Hilario Noel M.D. and dander 12/04/2018 J30.81 Allergic rhinitis due to animal (cat) (dog) hair Allergy Injection and dander 11/29/2018 J30.1 Allergic rhinitis due to pollen Hilario Noel M.D. 11/29/2018 J30.1 Allergic rhinitis due to pollen Allergy Injection 11/29/2018 J30.89 Other allergic rhinitis Hilario Noel M.D. 11/29/2018 J30.89 Other allergic rhinitis Allergy Injection 11/29/2018 J30.2 Other seasonal allergic rhinitis Hilario Noel M.D. 11/29/2018 J30.2 Other seasonal allergic rhinitis Allergy Injection 11/29/2018 J30.81 Allergic rhinitis due to animal (cat) (dog) hair Hilario oNel M.D. and dander 11/29/2018 J30.81 Allergic rhinitis due to animal (cat) (dog) hair Allergy Injection and dander 11/20/2018 J30.1 Allergic rhinitis due to pollen Hilario Noel M.D. 11/20/2018 J30.1 Allergic rhinitis due to pollen Allergy Injection 11/20/2018 J30.89 Other allergic rhinitis Hilario Noel M.D. 11/20/2018 J30.89 Other allergic rhinitis Allergy Injection 11/20/2018 J30.2 Other seasonal allergic rhinitis Hilario Noel M.D. 11/20/2018 J30.2 Other seasonal allergic rhinitis Allergy Injection 11/20/2018 J30.81 Allergic rhinitis due to animal (cat) (dog) hair Hilario Noel M.D. and dander 11/20/2018 J30.81 Allergic rhinitis due to animal (cat) (dog) hair Allergy Injection and dander 11/13/2018 J30.1 Allergic rhinitis due to pollen Hilario Noel M.D. 11/13/2018 J30.1 Allergic rhinitis due to pollen Allergy Injection 11/13/2018 J30.89 Other allergic rhinitis Hilario Noel M.D. 11/13/2018 J30.89 Other allergic rhinitis Allergy Injection 11/13/2018 J30.2 Other seasonal allergic rhinitis Hilario Noel M.D. 11/13/2018 J30.2 Other seasonal allergic rhinitis Allergy Injection 11/13/2018 J30.81 Allergic rhinitis due to animal (cat) (dog) hair Hilario Noel M.D. and dander 11/13/2018 J30.81 Allergic rhinitis due to animal (cat) (dog) hair Allergy Injection and dander 11/06/2018 J30.1 Allergic rhinitis due to pollen Hilario Noel M.D. 11/06/2018 J30.1 Allergic rhinitis due to pollen Allergy Injection 11/06/2018 J30.89 Other allergic rhinitis Hilario Noel M.D. 11/06/2018 J30.89 Other allergic rhinitis Allergy Injection 11/06/2018 J30.2 Other seasonal allergic rhinitis Hilario Noel M.D. 11/06/2018 J30.2 Other seasonal allergic rhinitis Allergy Injection 11/06/2018 J30.81 Allergic rhinitis due to animal (cat) (dog) hair Hilario Noel M.D. and dander 11/06/2018 J30.81 Allergic rhinitis due to animal (cat) (dog) hair Allergy Injection and dander 10/30/2018 J30.1 Allergic rhinitis due to pollen Hilario Noel M.D. 10/30/2018 J30.1 Allergic rhinitis due to pollen Allergy Injection 10/30/2018 J30.89 Other allergic rhinitis Hilario Noel M.D. 10/30/2018 J30.89 Other allergic rhinitis Allergy Injection 10/30/2018 J30.2 Other seasonal allergic rhinitis Hilario Noel M.D. 10/30/2018 J30.2 Other seasonal allergic rhinitis Allergy Injection 10/30/2018 J30.81 Allergic rhinitis due to animal (cat) (dog) hair Hilario Noel M.D. and dander 10/30/2018 J30.81 Allergic rhinitis due to animal (cat) (dog) hair Allergy Injection and dander 10/25/2018 J30.2 Other seasonal allergic rhinitis Hilario Noel M.D. 10/25/2018 J30.2 Other seasonal allergic rhinitis Allergy Injection 10/25/2018 J30.81 Allergic rhinitis due to animal (cat) (dog) hair Hilario Noel M.D. and dander 10/25/2018 J30.81 Allergic rhinitis due to animal (cat) (dog) hair Allergy Injection and dander 10/25/2018 J30.1 Allergic rhinitis due [...] Injection 10/16/2018 J30.2 Other seasonal allergic rhinitis Hilario Noel M.D. 10/16/2018 J30.2 Other seasonal allergic rhinitis Allergy Injection 10/16/2018 J30.81 Allergic rhinitis due to animal (cat) (dog) hair Hilario Noel M.D. and dander 10/16/2018 J30.81 Allergic rhinitis due to animal (cat) (dog) hair Allergy Injection and dander 10/09/2018 J30.1 Allergic rhinitis due to pollen Hilario Noel M.D. 10/09/2018 J30.1 Allergic rhinitis due to pollen Allergy Injection 10/09/2018 J30.89 Other allergic rhinitis Hilario Noel M.D. 10/09/2018 J30.89 Other allergic rhinitis Allergy Injection 10/09/2018 J30.2 Other seasonal allergic rhinitis Hilario Noel M.D. 10/09/2018 J30.2 Other seasonal allergic rhinitis Allergy Injection 10/09/2018 J30.81 Allergic rhinitis due to animal (cat) (dog) hair Hilario Noel M.D. and dander 10/09/2018 J30.81 Allergic rhinitis due to animal (cat) (dog) hair Allergy Injection and dander 10/02/2018 J30.1 Allergic rhinitis due to pollen Hilario Noel M.D. 10/02/2018 J30.1 Allergic rhinitis due to pollen Allergy Injection 10/02/2018 J30.89 Other allergic rhinitis Hilario Noel M.D. 10/02/2018 J30.89 Other allergic rhinitis Allergy Injection 10/02/2018 J30.2 Other seasonal allergic rhinitis Hilario Noel M.D. 10/02/2018 J30.2 Other seasonal allergic rhinitis Allergy Injection 10/02/2018 J30.81 Allergic rhinitis due to animal (cat) (dog) hair Hilario Noel M.D. and dander 10/02/2018 J30.81 Allergic rhinitis due to animal (cat) (dog) hair Allergy Injection and dander 09/27/2018 J30.1 Allergic rhinitis due to pollen Hilario Noel M.D. 09/27/2018 J30.1 Allergic rhinitis due to pollen Allergy Injection 09/27/2018 J30.89 Other allergic rhinitis Hilario Noel M.D. 09/27/2018 J30.89 Other allergic rhinitis Allergy Injection 09/27/2018 J30.2 Other seasonal allergic rhinitis Hilario Noel M.D. 09/27/2018 J30.2 Other seasonal allergic rhinitis Allergy Injection 09/27/2018 J30.81 Allergic rhinitis due to animal (cat) (dog) hair Hilario Noel M.D. and dander 09/27/2018 J30.81 Allergic rhinitis due to animal (cat) (dog) hair Allergy Injection and dander 09/18/2018 J30.1 Allergic rhinitis due to pollen Hilario Noel M.D. 09/18/2018 J30.1 Allergic rhinitis due to pollen Allergy Injection 09/18/2018 J30.89 Other allergic rhinitis Hilario Noel M.D. 09/18/2018 J30.89 Other allergic rhinitis Allergy Injection 09/18/2018 J30.2 Other seasonal allergic rhinitis Hilario Noel M.D. 09/18/2018 J30.2 Other seasonal allergic rhinitis Allergy Injection 09/18/2018 J30.81 Allergic rhinitis due to animal (cat) (dog) hair Hilario Noel M.D. and dander 09/18/2018 J30.81 Allergic rhinitis due to animal (cat) (dog) hair Allergy Injection and dander 09/11/2018 J30.1 Allergic rhinitis due [...] Allergic rhinitis due to animal (cat) (dog) hair Hilario Noel M.D. and dander 09/11/2018 J30.89 Other allergic rhinitis Allergy Injection 09/11/2018 J30.2 Other seasonal allergic rhinitis Hilario Noel M.D. 09/11/2018 J30.2 Other seasonal allergic rhinitis Allergy Injection 09/11/2018 J30.81 Allergic rhinitis due to animal (cat) (dog) hair Hilario Noel M.D. and dander 09/11/2018 J30.81 Allergic rhinitis due to animal (cat) (dog) hair Allergy Injection and dander 09/06/2018 J30.1 Allergic rhinitis due to pollen Hilario Noel M.D. 09/06/2018 J30.1 Allergic rhinitis due to pollen Allergy Injection 09/06/2018 J30.89 Other allergic rhinitis Hilario Noel M.D. 09/06/2018 J30.89 Other allergic rhinitis Allergy Injection 09/06/2018 J30.2 Other seasonal allergic rhinitis Hilario Noel M.D. 09/06/2018 J30.2 Other seasonal allergic rhinitis Allergy Injection 09/06/2018 J30.81 Allergic rhinitis due to animal (cat) (dog) hair Hilario Noel M.D. and dander 09/06/2018 J30.81 Allergic rhinitis due to animal (cat) (dog) hair Allergy Injection and dander 08/28/2018 J30.1 Allergic rhinitis due to pollen Hilario Noel M.D. 08/28/2018 J30.1 Allergic rhinitis due to pollen Allergy Injection 08/28/2018 J30.89 Other allergic rhinitis Hilario Noel M.D. 08/28/2018 J30.89 Other allergic rhinitis Allergy Injection 08/28/2018 J30.2 Other seasonal allergic rhinitis Hilario Noel M.D. 08/28/2018 J30.2 Other seasonal allergic rhinitis Allergy Injection 08/28/2018 J30.81 Allergic rhinitis due to animal (cat) (dog) hair Hilario Noel M.D. and dander 08/28/2018 J30.81 Allergic rhinitis due to animal (cat) (dog) hair Allergy Injection and dander 08/21/2018 J30.1 Allergic rhinitis due to pollen Hilario Noel M.D. 08/21/2018 J30.1 Allergic rhinitis due to pollen Allergy Injection 08/21/2018 J30.89 Other allergic rhinitis Hilario Noel M.D. 08/21/2018 J30.89 Other allergic rhinitis Allergy Injection 08/21/2018 J30.2 Other seasonal allergic rhinitis Hilario Noel M.D. 08/21/2018 J30.2 Other seasonal allergic rhinitis Allergy Injection 08/21/2018 J30.81 Allergic rhinitis due to animal (cat) (dog) hair Hilario Noel M.D. and dander 08/21/2018 J30.81 Allergic rhinitis due to animal (cat) (dog) hair Allergy Injection and dander 08/14/2018 J30.1 Allergic rhinitis due to pollen Hilario Noel M.D. 08/14/2018 J30.1 Allergic rhinitis due to pollen Allergy Injection 08/14/2018 J30.89 Other allergic rhinitis Hilario Noel M.D. 08/14/2018 J30.89 Other allergic rhinitis Allergy Injection 08/14/2018 J30.2 Other seasonal allergic rhinitis Hilario Noel M.D. 08/14/2018 J30.2 Other seasonal allergic rhinitis Allergy Injection 08/14/2018 J30.81 Allergic rhinitis due to animal (cat) (dog) hair Hilario Noel M.D. and dander 08/14/2018 J30.81 Allergic rhinitis due to animal (cat) (dog) hair Allergy Injection and dander 08/07/2018 J30.1 Allergic rhinitis due to pollen Hilario Noel M.D. 08/07/2018 J30.1 Allergic rhinitis due to pollen Allergy Injection 08/07/2018 J30.89 Other allergic rhinitis Hilario Noel M.D. 08/07/2018 J30.89 Other allergic rhinitis Allergy Injection 08/07/2018 J30.2 Other seasonal allergic rhinitis Hilario Noel M.D. 08/07/2018 J30.2 Other seasonal allergic rhinitis Allergy Injection 08/07/2018 J30.81 Allergic rhinitis due to animal (cat) (dog) hair Hilario Noel M.D. and dander 08/07/2018 J30.81 Allergic rhinitis due to animal (cat) (dog) hair Allergy Injection and dander 07/31/2018 J30.1 Allergic rhinitis due to pollen Hilario Noel M.D. 07/31/2018 J30.1 Allergic rhinitis due to pollen Allergy Injection 07/31/2018 J30.89 Other allergic rhinitis Hilario Noel M.D. 07/31/2018 J30.89 Other allergic rhinitis Allergy Injection 07/31/2018 J30.2 Other seasonal allergic rhinitis Hilario Noel M.D. 07/31/2018 J30.2 Other seasonal allergic rhinitis Allergy Injection 07/31/2018 J30.81 Allergic rhinitis due to animal (cat) (dog) hair Hilario Noel M.D. and dander 07/31/2018 J30.81 Allergic rhinitis due to animal (cat) (dog) hair Allergy Injection and dander 07/17/2018 J30.1 Allergic rhinitis due to pollen Hilario Noel M.D. 07/17/2018 J30.1 Allergic rhinitis due to pollen Allergy Injection 07/17/2018 J30.89 Other allergic rhinitis Hilario Noel M.D. 07/17/2018 J30.89 Other allergic rhinitis Allergy Injection 07/17/2018 J30.2 Other seasonal allergic rhinitis Hilario Noel M.D. 07/17/2018 J30.2 Other seasonal allergic rhinitis Allergy Injection 07/17/2018 J30.81 Allergic rhinitis due to animal (cat) (dog) hair Hilario Noel M.D. and dander 07/17/2018 J30.81 Allergic rhinitis due to animal (cat) (dog) hair Allergy Injection and dander 07/10/2018 J30.1 Allergic rhinitis due to pollen Hilario Noel M.D. 07/10/2018 J30.1 Allergic rhinitis due to pollen Allergy Injection 07/10/2018 J30.89 Other allergic rhinitis Hilario Noel M.D. 07/10/2018 J30.89 Other allergic rhinitis Allergy Injection 07/10/2018 J30.2 Other seasonal allergic rhinitis Hilario Noel M.D. 07/10/2018 J30.2 Other seasonal allergic rhinitis Allergy Injection 07/10/2018 J30.81 Allergic rhinitis due to animal (cat) (dog) hair Hilario Noel M.D. and dander 07/10/2018 J30.81 Allergic rhinitis due to animal (cat) (dog) hair Allergy Injection and dander Plan of Treatment No Information Available Functional Status Description No Information Available Mental Status Description No Information Available Referrals Description No Information Available
--- OUTSIDE RECORDS SUMMARY | 2019-02-21 15:06 | XMS REPORT | Continuity of Care Document ---
:1975 External Reference #:[id number] Author Name Mindi Claudio M.D. (transmitted by agent of provider Hilario Noel) Address [address] [place] [address] Care Team Providers Name Role Phone Jesse Kyle M.D. Care Team Information [place] Aide Unavailable Problems Active Problems Provider Date Allergic [...] CPT Code Status Date Vaccine Lot # 21061 Given Unknown Influenza Vaccine 20078 Given Unknown Influenza Vaccine Vital Signs Date [...] Available Procedures Date Code Description Status 01/01/2019 15850 Injection Completed 12/25/2018 05419 Injection Completed 12/18/2018 73090 Extract 1-10 Completed 12/18/2018 69623 Injection Completed 12/13/2018 68045 Injection Completed 12/04/2018 93755 Injection Completed 11/29/2018 31584 Injection Completed 11/20/2018 54247 Injection Completed 11/13/2018 53088 Injection Completed 11/06/2018 56082 Injection Completed 10/30/2018 22222 Injection Completed 10/25/2018 48743 Injection Completed 10/16/2018 50986 Injection Completed 10/09/2018 01448 Injection Completed 10/02/2018 14541 Injection Completed 09/27/2018 39779 Injection Completed 09/18/2018 44985 Injection Completed 09/11/2018 44690 Extract 1-10 Completed 09/11/2018 30987 Injection Completed 09/06/2018 40377 Injection Completed 08/28/2018 69249 Injection Completed 08/21/2018 10469 Injection Completed 08/14/2018 58133 Injection Completed 08/07/2018 08012 Injection Completed 07/31/2018 64465 Injection Completed 07/17/2018 50597 Injection Completed 07/10/2018 75657 Injection Completed Medical Devices Description No Information Available Encounters Description No Information Available Assessments Date Code Description Provider 01/05/2019 J30.1 Allergic rhinitis due to pollen Mindi Claudio M.D. 01/01/2019 J30.1 Allergic rhinitis due to pollen Hilario Noel M.D. 01/01/2019 J30.1 Allergic rhinitis due to pollen Allergy Injection 01/01/2019 J30.89 Other allergic rhinitis Hilario Noel M.D. 01/01/2019 J30.89 Other allergic rhinitis Allergy Injection 01/01/2019 J30.2 Other seasonal allergic rhinitis iHlario Noel M.D. 01/01/2019 J30.2 Other seasonal allergic [...] rhinitis due to animal (cat) (dog) Hilario oNel M.D. hair and dander 11/29/2018 J30.81 Allergic [...] Injection hair and dander Plan of Treatment No Information Available Functional Status Description No Information Available Mental Status Description No Information Available Referrals Description No Information Available
[2019-02-21 15:20] VITALS: BP 132/73
[2019-02-21] MEDS ORDERED: Tenofovir/Emtricitab 200/300 * TAB PO ONE ×2 (17:09→17:13)
[2019-02-21] MEDS ORDERED: Raltegravir* 400 MG TAB PO ONE ×2 (17:10→17:13)
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
[2019-02-22 12:42] LABS: ABS Eosinophils 0.1 10^3/ul (0-0.6); ABS Lymphocytes 2.8 10^3/ul (1.0-4.8); ABS Monocytes 0.5 10^3/ul (0-0.8); ABS Neutrophils 3.9 10^3/ul (1.5-7.7); Eosinophil % 1.9 %; Hematocrit 39 % (35-47); Lymphocyte % 37.7 %; Mean Corpuscular HGB Conc 33 g/dL (31-36); Mean Corpuscular Hemoglobin 27 pg (27-31); Mean Corpuscular Volume 81 fL (80-97); Mean Platelet Volume 9.4 fL (7.4-10.4); Platelet Count 269 10^3/uL (150-450); Red Blood Count 4.84 10^6 /uL (3.70-4.87); Red Cell Distribution Width 13 % (10-15); White Blood Count 7.4 10^3/uL (3.5-10.8)
[2019-02-22 12:48] LABS: Albumin 4.4 g/dL (3.2-5.2); Anion Gap 6 mmol/L (2-11); CO2 Carbon Dioxide 27 mmol/L (22-32); Calcium 9.6 mg/dL (8.6-10.3); Chloride 103 mmol/L (101-111); Potassium 4.4 mmol/L (3.5-5.0); Sodium 136 mmol/L (135-145)
[2019-02-22 12:54] LABS: ALT 12 U/L (7-52); AST 16 U/L (13-39); Albumin/Globulin Ratio 1.7 (1-3); Alkaline Phosphatase 64 U/L (34-104); BUN/Creatinine Ratio 17.2 (8-20); Blood Urea Nitrogen 16 mg/dL (6-24); EGFR African American 79.2 (>60); EGFR Non-African American 65.5 (>60); Globulin 2.6 g/dL (2-4); Glucose 73 mg/dL (70-100)
[2019-02-22 12:58] LABS: HCG Pregnancy < 0.60 mIU/mL
[2019-02-22 13:38] LABS: Hepatitis B Surface Antigen Nonreactive (Nonreactive)
[2019-02-22 13:55] LABS: Hepatitis B Surface Ab Immune (Immune); Hepatitis C Antibody Negative (Negative)
[2019-02-22 14:03] LABS: HIV 4th Generation Nonreactive (Nonreactive)
== END 2019-02-21 17:51 | disposition home or self-care (01) ==
LOC: UCEAST 14:50
DX: S51.852A Open bite of left forearm, initial encounter (principal); Z88.0 Allergy status to penicillin; Z88.8 Allergy status to other drugs, medicaments and biological substances; W50.3XXA Accidental bite by another person, initial encounter; Y92.9 Unspecified place or not applicable
CPT/HCPCS: 36415; 80053; 84702; 85025; 86706; 86803; 87340; 87389; 99213; G0463